=== PATIENT | male | born 1975 | race Caucasian/White ===

== ENCOUNTER → 2023-08-11 | Outpatient (CLI) | payer OTHER ==
--- NOTE | 2023-08-11 17:32 | Diagnostic Imaging Report ---
PROCEDURE: US Renal Bilateral. TECHNIQUE: Multiple real-time grayscale images were obtained over the kidneys in various projections bilaterally. INDICATION: Nephrolithiasis. FINDINGS: Right kidney measures 11 x 5.4 x 5.7 cm. Left kidney measures 10.8 x 5.7 x 5.9 cm. Both kidneys demonstrate normal renal cortical thickness and echogenicity. There appears to be a 1 cm nonobstructing stone in the left kidney. There is no hydronephrosis or mass in either kidney. Prevoid bladder volume is 49 cc. Both ureteral jets are visualized. IMPRESSION: Approximately 1 cm nonobstructing stone in the mid left kidney. Dictated by: Dictated on workstation # [id number]
== END ==
LOC: RAD 10:23
PROVIDERS: ATTEND Specialist
DX: N20.2 Calculus of kidney with calculus of ureter (principal)
CPT/HCPCS: 76770